=== PATIENT | female | born 1955 | race Caucasian/White ===

== ENCOUNTER 2016-12-15 10:10 | Emergency (ER) | payer OTHER, BC ==
[~2016-12-15] VITALS: Ht 170.2 cm; Wt 76.2 kg
[~2016-12-15 10:10] MED LIST: ADVAIR 100-501 EACH INH; ADVAIR 250-501 EACH IH; CLARINEX5 MG PO; DIAZEPAM 5 MG5 MG PO; DIFLUCAN150 MG PO; FLEXERIL PO; GLUCOPHAGE1000 MG PO; GLUCOTROL5 MG PO; HYDROCODON-ACE1 EAC1 PO; HYDROCODON-ACE1 EAC8 PO; HYDROCODONE-AP1 EA11 PO; LEVOXYL125 MCG PO; LEVOXYL150 MCG PO; LISINOPRIL20 MG PO; MOBIC15 MG PO; NAPROSYN500 MG PO; PAROXETINE ER12.5 M1 PO; PAROXETINE HCL10 MG PO; PREDNISONE 20 M20 M1 PO; PROAIR HFA8.5 GM INH; ZPAK PO
[2016-12-15] MEDS ORDERED: LIDODERM 5%1 PATC1 TRANSDERM (11:35)
[2016-12-15] MEDS ORDERED: MOBIC15 MG PO (11:35)
== END 2016-12-15 11:49 | disposition home or self-care (01) ==
LOC: ER 10:10
DX: S80.01XA Contusion of right knee, initial encounter (principal); E11.9 Type 2 diabetes mellitus without complications; E05.00 Thyrotoxicosis with diffuse goiter without thyrotoxic crisis or storm; Z88.1 Allergy status to other antibiotic agents; Z88.5 Allergy status to narcotic agent; Z88.0 Allergy status to penicillin; Z87.891 Personal history of nicotine dependence; W01.0XXA Fall on same level from slipping, tripping and stumbling without subsequent striking against object, initial encounter; Y93.89 Activity, other specified; Y92.89 Other specified places as the place of occurrence of the external cause; Y99.8 Other external cause status

== ENCOUNTER → 2018-07-30 | Outpatient (CLI) | payer OTHER, BC ==
[~2018-07-30] MED LIST changes: +LIDODERM 5%1 PATC1 TRANSDERM
== END ==
LOC: BC 01:05
DX: Z12.31 Encounter for screening mammogram for malignant neoplasm of breast (principal)

== ENCOUNTER → 2019-08-26 | Outpatient (CLI) | payer OTHER, BC | LOC: RAD 07:59 | DX: Z12.31 Encounter for screening mammogram for malignant neoplasm of breast (principal) ==

== ENCOUNTER → 2020-12-19 | Outpatient (CLI) | payer OTHER, BC | LOC: BC 08:41 | PROVIDERS: ATTEND Internal Medicine | DX: Z12.31 Encounter for screening mammogram for malignant neoplasm of breast (principal); N64.89 Other specified disorders of breast ==